=== PATIENT | female | born 1965 ===

== ENCOUNTER 2019-10-25 13:27 | Outpatient (CLI) | payer OTHER | END 2019-10-25 13:39 | disposition home or self-care (01) | LOC: RAD 13:27 | DX: M41.84 Other forms of scoliosis, thoracic region (principal); M41.86 Other forms of scoliosis, lumbar region ==

== ENCOUNTER 2025-05-17 11:06 | Outpatient (CLI) | payer OTHER | END 2025-05-17 11:08 | disposition home or self-care (01) | LOC: RAD 11:06 | DX: M41.9 Scoliosis, unspecified (principal) ==